=== PATIENT | female | born 1980 | race Native Hawaiian/Other Pacific Islander ===

== ENCOUNTER 2018-09-10 10:25 | Emergency (ER) | payer SELFPAY ==
[2018-09-10 10:54] LABS: Bacteria,Urine 1+ /HPF (Negative); Bilirubin,Urine NEG (Negative); Blood,Urine LG (Negative); Color,Urine Yellow (Yellow); Protein,Urine <15 mg/dL mg/dL (Negative); Urobilinogen,Urine < 2.0 mg/dL (<2.0)
--- NOTE | 2018-09-10 11:21 | Emergency Department Report ---
ED Female HPI - General Chief complaint: Urogenital-Female Stated complaint: VAGINAL BLEEDING Time Seen by Provider: 09/10/18 11:09 Source: patient Mode of arrival: Ambulatory Limitations: No Limitations - History of Present Illness Initial comments: Mrs. Hull presents with vaginal bleeding. She has not had bleeding since bilateral oophorectomy in 2011 or 2012. Surgery was performed at [facility]. Mild pelvic pain. Complaint: vaginal bleeding -: Gradual, days(s) (1) Severity: mild Quality: dull - Related Data Allergies Allergy/AdvReac Type Severity Reaction Status Date / Time No Known Allergies Allergy Unverified 09/10/18 10:35 ED Review of Systems ROS: Stated complaint: VAGINAL BLEEDING Other details as noted in HPI Comment: All other systems reviewed and negative Constitutional: denies: fever, malaise Respiratory: denies: cough ED Past Medical Hx - Past Medical History Previous Medical History?: No - Surgical History Past Surgical History?: No - Social History Smoking Status: Never Smoker Substance Use Type: None ED Physical Exam - General Limitations: No Limitations General appearance: alert, in no apparent distress - Head Head exam: Present: atraumatic, normocephalic - Eye Eye exam: Present: normal appearance - ENT ENT exam: Present: mucous membranes moist - Neck Neck exam: Present: normal inspection - Respiratory Respiratory exam: Present: normal lung sounds bilaterally. Absent: respiratory distress, wheezes, rales, rhonchi - Cardiovascular Cardiovascular Exam: Present: regular rate, normal rhythm, normal heart sounds. Absent: systolic murmur, diastolic murmur, rubs, gallop - GI/Abdominal GI/Abdominal exam: Present: soft, normal bowel sounds. Absent: distended, tenderness, guarding, rebound - Extremities Exam Extremities exam: Present: normal inspection - Back Exam Back exam: Present: normal inspection - Neurological Exam Neurological exam: Present: alert, oriented X3 - Psychiatric Psychiatric exam: Present: normal affect, normal mood - Skin Skin exam: Present: warm, dry, intact, normal color. Absent: rash ED Course Vital Signs 09/10/18 10:30 Temperature 97.8 F Pulse Rate 63 Respiratory 16 Rate Blood Pressure 118/63 O2 Sat by Pulse 100 Oximetry ED Medical Decision Making - Medical Decision Making Ms. Hull presents DUB. It appears that she has her uterus intact. I was unable to retrieve records from gynecological surgery which was performed here. She was referred to her PCP and outside clinic. She understands that she needs pap smear and endometrial biopsy. Family member and patient understood these instructions. DO not suspect UTI. I suspected contaminated urine specimen. Critical care attestation.: If time is entered above; I have spent that time in minutes in the direct care of this critically ill patient, excluding procedure time. ED Disposition Clinical Impression: DUB (dysfunctional uterine bleeding) Disposition: TO HOME OR SELFCARE Is pt being admited?: No Does the pt Need Aspirin: No Condition: Stable Instructions: Dysfunctional Uterine Bleeding (ED) Additional Instructions: You will need a pap smear and endometrial biopsy. Referrals: [facility] [Outside] - 3-5 Days KARTIK HOFFMAN MD [Staff Physician] - 3-5 Days
[2018-09-10 11:32] VITALS: BP 115/80
== END 2018-09-10 11:30 | disposition home or self-care (01) ==
LOC: ED 10:25
DX: N93.8 Other specified abnormal uterine and vaginal bleeding (principal); Z90.722 Acquired absence of ovaries, bilateral
CPT/HCPCS: 81001; 99283